=== PATIENT | female | born 1995 | race African-American/Black ===

== ENCOUNTER 2021-07-01 21:43 | Emergency (ER) | payer MEDICAID ==
[~2021-07-01] VITALS: Ht 180.3 cm; Wt 74.0 kg
[2021-07-01 21:53] VITALS: BP 106/62
== END 2021-07-02 01:00 | disposition home or self-care (01) ==
LOC: ER 21:43
DX: F41.9 Anxiety disorder, unspecified (principal); F20.9 Schizophrenia, unspecified
CPT/HCPCS: 99283